=== PATIENT | female | born 1940 | race Caucasian/White ===

== ENCOUNTER 2020-07-01 11:38 | Inpatient (IN) | payer OTHER ==
[2020-07-01 12:07] LABS: Absolute Lymphocytes (CBC) 0.8 K/uL (0.7-4.9); Basophils % 0.3 % (0-1.3); Hematocrit 41.6 % (36.0-45.0); Lymphocytes % 4.7 % (15.3-44.8); RBC Red Blood Cell Count 4.96 M/uL (3.86-4.86)
[2020-07-01] MEDS ORDERED: ONDANSETRON 4 MG/2 ML VIAL ONE (12:18)
[2020-07-01] MEDS ORDERED: NA CHLORIDE 0.9% 1,000 ML ONE (12:18)
[2020-07-01] MEDS ORDERED: ACETAMINOPHEN 650MG/RECT SUPP PR ONE (12:18)
[2020-07-01 12:28] LABS: Albumin 3.1 g/dL (3.4-5.0); Bilirubin Direct 0.2 mg/dL (0-0.2); Bilirubin Total 0.7 mg/dL (0.2-1.0); Potassium 3.8 mmol/L (3.5-5.1); Protein, Total 7.2 g/dL (6.4-8.2); Protime INR 1.17; Troponin (Emerg Dept Use Only) 0.03 ng/mL (0.0-0.045)
--- NOTE | 2020-07-01 12:47 | RAD REPORT ---
EXAM DESCRIPTION: RAD - Chest Single View - 07/01/2020 12:28 pm CLINICAL HISTORY: Cough;Fever TECHNIQUE: AP portable chest image was obtained 07/01/2020 12:28 pm . FINDINGS: Dense masslike consolidation is present in the lateral right mid lung field. In the acute clinical setting this is most likely medial acquired pneumonia. Malignancy cannot be excluded if ther e are no findings that would support acute pneumonia. No cavitation component seen. Elsewhere the low lung volume exam shows no acute lung parenchymal process. Cardiomediastinal silhouette within normal limits. No measurable pleural effusion and no pneumothorax. No acute bony abnormality seen. No acute aortic findings suspected. IMPRESSION: Dense masslike consolidation right mid lung field most likely acute pneumonia. Correlation is needed with clinical findings for acute infectious pneumonia. Continued follow-up is n eeded to assure complete clearing.
[2020-07-01 12:53] LABS: Urine Blood 1+ (Negative); Urine Glucose Negative (Negative); Urine Protein 1+ (Negative); Urine Specific Gravity 1.025 (1.005-1.030)
--- NOTE | 2020-07-01 12:54 | RAD REPORT ---
EXAM DESCRIPTION: CT - Thorax Wo Con - 07/01/2020 12:39 pm CLINICAL HISTORY: cough COMPARISON: No comparisons TECHNIQUE: Axial 5 mm thick images of the chest were obtained without IV contrast. All CT scans are performed using dose optimization technique as appropriate and may include automated exposure control or mA/KV adjustment according to patient size. FINDINGS: A large 12 centimeter area of airspace opacification is present in the inferior right uppe r lobe abutting the minor fissure. Within this opacification is a more dense 5 centimeter area. There is no cavitation. Air bronchograms are present. Airspace opacification with air bronchogram formatio n seen right middle lobe infrahilar region. Right lower lobe is clear. A few very small patchy areas of airspace opacification seen in the superior segment left lower lobe and in the left upper lobe. Tr ksenia right-sided pleural effusion. No pneumothorax peer no pleural based mass. A few nonspecific mediastinal and hilar lymph nodes are present. Granulomatous type calcifications ar e present. Aortic calcifications present without aneurysm. No gross abnormal aorta or pulmonary arter ial tree. CT chest study was performed after the CT study of the abdomen and pelvis. This results in diluted contrast within the vascular spaces. No large pulmonary emboli seen. No cardiomegaly or pericardial effusion. No chest wall mass or abnormal axillary lymphadenopathy. IMPRESSION: Large dense consolidation in the inferior aspect right upper lobe abutting the minor fis sure. No cavitation component. Small area of airspace opacification perihilar right middle lobe. Most likely etiology is bacterial pneumonia. Due to a more dense masslike component centrally, contin ued follow-up imaging after medical management is needed to assure that this is not a mass with a pos tobstructive pneumonia..
--- NOTE | 2020-07-01 12:56 | RAD REPORT ---
EXAM DESCRIPTION: CT - Head Brain Wo Cont - 07/01/2020 12:27 pm CLINICAL HISTORY: CONFUSED, unresponsive COMPARISON: No comparisons TECHNIQUE: Axial 5 mm thick images of the head were obtained without IV contrast. All CT scans are performed using dose optimization technique as appropriate and may include automated exposure control or mA/KV adjustment according to patient size. FINDINGS: No intracranial hemorrhage, mass, edema or shift of mid-line structures. No acute infarcti on changes seen. No abnormal extra-axial fluid collections. Mild to moderate atrophy changes are pres ent with ventricles in proportion. No cortical edema or sulcal effacement. Moderate chronic ischemic change present in the cerebral white matter with extension into each basal ganglia and thalamus. Brai nstem chronic ischemic changes probably present as well. . Mastoid air cells and visualized portions of the paranasal sinuses are clear. No acute bony findings. IMPRESSION: No hemorrhage present. No acute cortical based infarction. Atrophy and chronic ischemic changes are present as detailed. Chronic ischemic change can mask nonhe morrhagic CVA.
[2020-07-01 13:02] LABS: Urine Bacteria <20 /HPF (<20); Urine Yeast PRESENT (NONE SEEN)
--- NOTE | 2020-07-01 13:04 | RAD REPORT ---
EXAM DESCRIPTION: CT - Abdomen Pelvis W Contrast - 07/01/2020 12:38 pm CLINICAL HISTORY: fever, vomiting, AMS COMPARISON: No comparisons TECHNIQUE: Biphasic, helical CT imaging of the abdomen and pelvis was performed following 100 ml non -ionic IV contrast. No oral contrast administered. All CT scans are performed using dose optimization technique as appropriate and may include automated exposure control or mA/KV adjustment according to patient size. FINDINGS: Consolidated parenchyma is present in the right upper lobe abutting the minor fissure and in the right perihilar right middle lobe region. Trace atelectasis in each posterior gutter. Chest fi ndings are further detailed in the CT chest report. Liver is borderline fatty infiltrated. No focal liver parenchymal lesion. Liver size is normal. No po rtal vein abnormality seen. No splenomegaly or focal splenic finding. Small accessory splenic nodule is present. No mass of the pancreatic parenchyma seen. No peripancreatic inflammatory stranding. Cholecystectomy clips are present. There are prominent biliary tree dilatation changes present with t he common bile duct is largest 2 cm in diameter. Pancreatic duct is enlarged in the head and body. At rophy changes are seen in the pancreatic parenchyma. Duct stones can be occult. A small mass or stric ture near the ampulla would be possible as well. Findings may all reflect a nonacute dilatation that can occur after a cholecystectomy. Symmetric renal function is seen with no hydronephrosis or suspicious renal mass. Small bilateral fe al masses are present showing simple cyst characteristics. Largest is an exophytic mass lateral mid l eft kidney. Pyelonephritis is not suspected. There is a subtle heterogeneity that is due to artifact from the patient's arms. No adrenal abnormalities. Urinary bladder is fully contracted around a Mosqueda catheter. No dilated bowel loops or bowel wall thickening. Small hiatal hernia is present. No evidence for appe ndicitis. No acute large or small bowel finding seen. Cecum is low lying along the right-side floor t he pelvis. Uterus is absent. Ovaries are absent or atrophic. No free air, free fluid or inflammatory stranding. No hernia, mass or bulky lymphadenopathy. No suspicious bony findings. IMPRESSION: Significant intrahepatic and extrahepatic biliary tree dilatation including dilatation o f the medial pancreatic duct. Findings may simply reflect the dilatation that can develop after a cholecystectomy. Duct stones can be occult. A small stricture or mass at the ampulla cannot be excluded. Correlation is needed with an y biliary obstructive clinical or laboratory findings. No acute GI, or [employer] TR[employer]IST finding. Right lung consolidated pneumonia findings are present only partially imaged. Please see separate CT chest report.
[2020-07-01] MEDS ORDERED: PIPER/TAZO/NS 3.375gm 3.375 GM/100 ML BAG ONE (13:11)
[2020-07-01 13:14] LABS: SARS-COV-2 RT PCR NEGATIVE (NEGATIVE)
[2020-07-01 13:15] LABS: Blood Morphology Comment NOT SEEN (NOT SEEN); Platelet Estimate ADEQ; White Blood Cell Scan OK (OK)
--- NOTE | 2020-07-01 13:52 | ER ---
Nurse's Notes [facility] Name: Lucie Dave Age: 79 yrs Sex: Female : 1940 Arrival Date: 07/01/2020 Time: 11:43 Bed 26 Private MD: Diagnosis: Pneumonia, unspecified organism;Altered mental status, unspecified Presentation: 07/01 11:38 Initial Sepsis Screen: Does the patient meet any 2 criteria? RR > 20 per min. Temp sv <36.0*C (96.8*F)) or > 38.3*C (100.9*F). HR > 90 bpm. Yes Does the patient have a suspected source of infection? Yes: Other: fever. Onset of symptoms was July 01, 2020. 11:38 Acuity: JUSTIN 2 sv 11:38 Chief complaint: Patient's son or daughter states: "She is here visiting and I figured ss she was just tired from shopping because she slept in longer than she ever has. When I went to check on her she wouldn't wake up and she had a fever." EMS reports vomiting episode x 1. Coronavirus screen: fever, Client presents with at least one sign or symptom that may indicate coronavirus-19. Standard/surgical mask placed on the client. Provider contacted for isolation considerations. Ebola Screen: Patient denies exposure to infectious person. Patient denies travel to an Ebola-affected area in the 21 days before illness onset. Risk Assessment: Do you want to hurt yourself or someone else? Patient reports no desire to harm self or others. 11:38 Method Of Arrival: EMS: [facility] ss Historical: - Allergies: 12:18 No Known Allergies; ss - PMHx: 12:18 COPD; CVA; Myocardial infarction; ss - Immunization history:: Adult Immunizations unknown. - Social history:: Smoking status: Patient/guardian denies using tobacco, the patient reports quitting approximately 20 years ago. - Family history:: not pertinent. - Hospitalizations: : No recent hospitalization is reported. Screenin:09 Abuse screen: Denies threats or abuse. Denies injuries from another. Nutritional ss screening: No deficits noted. Tuberculosis screening: Never had TB. Fall Risk None identified. Assessment: 11:45 General: Appears distressed, uncomfortable, ill, Behavior is confused, lethargic. . ss daughter reports fever that she noticed when she tried to wake her up this morning. Also states that patient would "barely wake up". Pain: Unable to use pain scale. Patient is disoriented. Neuro: Level of Consciousness is awake, obeys commands, confused, lethargic, Oriented to person, place, time. Cardiovascular: Capillary refill is sluggish in bilateral fingers Patient's skin is warm and dry. Pulses are palpable in right radial artery and left radial artery. Respiratory: Breath sounds with crackles bilaterally. Breath sounds with wheezes bilaterally. GI: Abdomen is non-distended, Abd is soft and non tender X 4 quads. EMS reports vomiting episode x 1. Dry vomit noted to L side of face/ mouth. :. EENT: Nares are clear Oral mucosa is dry. Derm: Skin is intact, is healthy with good turgor, Skin is dry, Skin is pink, warm \\T\\ dry. normal. Derm: hard, wrinkly, lumpy skin noted to bilateral lower extremities. No redness noted. PT has lesions on R posterior back/ shoulder blade that she is currently receiving treatment for. 12:20 Reassessment: DAughter at bedside. Patient's clothes placed in bag and given to ss daughter. Daughter gave them to her to bring home. Awaiting labs and imaging to result at this time. Call light remains within reach. 13:12 Reassessment: Patient appears in no apparent distress at this time. Patient and/or sv family updated on plan of care and expected duration. Pain level reassessed. 14:11 Reassessment: Pt is resting at this time. Eyes closed. Respirations remain even and ss unlabored. Awaiting for hospitalist to place admission orders. Pt wakes up easily to verbal stimuli and is oriented x3. Vital Signs: 11:37 Pulse Ox 96% on R/A; sv 11:38 BP 136 / 79; Pulse 114; Resp 30; Temp 103(C); Pulse Ox 100% on 2 lpm NC; sv 12:56 BP 144 / 73; Pulse 102; Resp 22; Temp 102.6(C); Pulse Ox 100% on 2 lpm NC; sv 14:03 BP 136 / 75; Pulse 100; Resp 20; Temp 101.5(C); Pain 0/10; ss 14:41 BP 136 / 83; Pulse 96; Resp 19; Temp 101.2(C); Pulse Ox 100% ; sv ED Course: 11:43 Patient arrived in ED. sv 11:43 First set of blood cultures drawn by ED staff. sv 11:44 Tyler Castellano MD is Attending Physician. rn 11:55 Mosqueda cath inserted, using sterile technique, 16 Fr., by nj, balloon inflated, to sv gravity drainage, returned clear yellow urine. Patient tolerated poorly. 11:55 Second set of blood cultures drawn by ED staff. Inserted saline lock: 20 gauge in right sv antecubital area, using aseptic technique. ,using aseptic technique. done by Mary Jane SALGADO Blood collected. Flushed right antecubital with 2 ml normal saline. 11:55 Patient has correct armband on for positive identification. Placed in gown. Bed in low sv position. Call light in reach. Side rails up X 1. Adult w/ patient. library monitor on. Pulse ox on. NIBP on. Door closed. Head of bed elevated. 12:02 Basic Metabolic Panel Sent. sv 12:02 CBC with Diff Sent. sv 12:02 Lactate Sent. sv 12:02 LFT's Sent. sv 12:02 Lipase Sent. sv 12:04 Triage completed. sv 12:04 Arm band placed on. sv 12:11 Aracely Avelar RN is Primary Nurse. sv 12:20 Blood Culture Adult (2) Sent. sv 12:27 CT Head Brain wo Cont In Process Unspecified. EDMS 12:28 Chest Single View XRAY In Process Unspecified. EDMS 12:38 CT Abd/Pelvis - IV Contrast Only In Process Unspecified. EDMS 12:39 CT Chest Wo Con In Process Unspecified. EDMS 13:04 Urine Culture Sent. sv 13:11 EKG done, by ED staff, reviewed by Tyler Castellano MD. sv 13:52 Mohit Valenzuela MD is Hospitalizing Provider. rn 14:10 No provider procedures requiring assistance completed. Patient admitted, IV remains in ss place. 16:02 Report given to Aminta SALGADO. sv Administered Medications: 12:11 Drug: Zofran (Ondansetron) 4 mg Route: IVP; Site: right antecubital; sv 14:12 Follow up: Response: No adverse reaction; Nausea is decreased ss 12:12 Drug: Tylenol Suppository 650 mg Route: MN; sv 14:12 Follow up: Response: No adverse reaction; Temperature is decreased ss 12:12 Drug: NS 0.9% 1000 ml Route: IV; Rate: 1000 ml; Site: right antecubital; sv 12:56 Drug: Zosyn 3.375 grams Route: IVPB; Infused Over: 60 mins; Site: right antecubital; ss 14:03 Follow up: IV Status: Completed infusion ss Outcome: 13:52 Decision to Hospitalize by Provider. rn 14:09 Condition: improved ss 14:09 Instructed on the need for admit. 18:21 Patient left the ED. hb Signatures: Dispatcher [employer] Aracely Mccann RN RN sv Tyler Castellano MD MD rn Smirch, Shelby, RN RN Morenita Ryan RN RN hb
--- NOTE | 2020-07-01 13:52 | EDPHYS ---
Physician Documentation [facility] Name: Lucie Dave Age: 79 yrs Sex: Female : 1940 Arrival Date: 07/01/2020 Time: 11:43 Bed 26 Private MD: ED Physician Tyler Castellano HPI: 07/01 13:24 This 79 yrs old Female presents to ER via EMS with complaints of Fever, rn Altered Mental Status. 13:24 The patient reports fever, that was measured at 102 degrees Fahrenheit. Onset: The rn symptoms/episode began/occurred this morning. Modifying factors: there are no obvious modifying factors. Associated signs and symptoms: Pertinent negatives: abdominal pain, altered mental status, chest pain, hemoptysis, skin rash. Severity of symptoms: At their worst the symptoms were moderate in the emergency department the symptoms have improved. 13:25 The patient has not experienced similar symptoms in the past. The patient has not rn recently seen a physician. 13:44 Reports fever and difficult to arouse this AM, was ok yesterday shopping. Pt denies rn focal pain. EMS reported single episode of emesis. + sob. . Historical: - Allergies: 12:18 No Known Allergies; ss - PMHx: 12:18 COPD; CVA; Myocardial infarction; ss - Immunization history:: Adult Immunizations unknown. - Social history:: Smoking status: Patient/guardian denies using tobacco, the patient reports quitting approximately 20 years ago. - Family history:: not pertinent. - Hospitalizations: : No recent hospitalization is reported. ROS: 13:44 Constitutional: + fever Eyes: Negative for injury, pain, redness, and discharge, Neck: rn Negative for injury, pain, and swelling, Cardiovascular: Negative for chest pain, palpitations, and edema, Respiratory: Negative for wheezing, and pleuritic chest pain, Abdomen/GI: Negative for abdominal pain, diarrhea, and constipation, Back: Negative for injury and pain, : Negative for injury, bleeding, discharge, and swelling, MS/Extremity: Negative for injury and deformity, Skin: Negative for injury, rash, and discoloration, Neuro: Negative for headache, numbness, tingling, and seizure. Exam: 13:44 Constitutional: This is a well developed, well nourished patient who is awake, rn somnolent, awwakens to voice and answers questions. Head/Face: Normocephalic, atraumatic. Eyes: Pupils equal round and reactive to light, extra-ocular motions intact. Lids and lashes normal. Conjunctiva and sclera are non-icteric and not injected. Cornea within normal limits. Periorbital areas with no swelling, redness, or edema. ENT: dry MM, no stridor Cardiovascular: Tachycardic, regular Respiratory: + mild tachypnea, no retractions Abdomen/GI: soft, non-tender Skin: Warm, dry MS/ Extremity: Pulses equal, no cyanosis. Neuro: Awake, GCS 15, oriented to person, place, time, and situation. Motor strength 4/5 in all extremities. Sensory grossly intact. Vital Signs: 11:37 Pulse Ox 96% on R/A; sv 11:38 BP 136 / 79; Pulse 114; Resp 30; Temp 103(C); Pulse Ox 100% on 2 lpm NC; sv 12:56 BP 144 / 73; Pulse 102; Resp 22; Temp 102.6(C); Pulse Ox 100% on 2 lpm NC; sv 14:03 BP 136 / 75; Pulse 100; Resp 20; Temp 101.5(C); Pain 0/10; ss 14:41 BP 136 / 83; Pulse 96; Resp 19; Temp 101.2(C); Pulse Ox 100% ; sv MDM: 11:44 Patient medically screened. rn 13:48 Differential diagnosis: viral Infection, bacterial infection, URI, bronchitis, rn pneumonia UTI, gastroenteritis. Data reviewed: vital signs, nurses notes, lab test result(s), EKG, radiologic studies, CT scan, plain films, and as a result, I will admit patient. Counseling: I had a detailed discussion with the patient and/or guardian regarding: the historical points, exam findings, and any diagnostic results supporting the discharge/admit diagnosis, lab results, radiology results, the need for further work-up and treatment in the hospital. Response to treatment: the patient's symptoms have mildly improved after treatment, and as a result, I will admit patient. Admission orders: after a detailed discussion of the patient's condition and case, the admit orders are written by me. ED course: Pt much more alert, ct shows moderate right middle lobe pneumonia, also shows biliary prominence but has had gallbladder removed, normal lfts, and non-tender abdomen so likely sequelae of cholecystectomy and age. Admitted to Dr. Valenzuela.. 07/01 11:45 Order name: Urine Culture rn 07/01 11:45 Order name: Basic Metabolic Panel rn 07/01 11:45 Order name: Blood Culture Adult (2) rn 07/01 11:45 Order name: CBC with Diff rn 07/01 11:45 Order name: Lactate rn 07/01 11:45 Order name: LFT's rn 07/01 11:45 Order name: Lipase rn 07/01 11:45 Order name: Procalcitonin; Complete Time: 13:10 rn 07/01 11:45 Order name: Protime (+inr); Complete Time: 12:51 rn 07/01 11:45 Order name: Ptt, Activated; Complete Time: 12:51 07/01 11:45 Order name: Troponin (emerg Dept Use Only); Complete Time: 12:51 07/01 11:45 Order name: Urine Microscopic Only; Complete Time: 13:06 07/01 11:46 Order name: Urine Culture EDOK 07/01 11:46 Order name: Basic Metabolic Panel; Complete Time: 12:51 EDOK 07/01 11:46 Order name: Blood Culture EDOK 07/01 11:46 Order name: CBC with Automated Diff EDOK 07/01 11:46 Order name: Lactate; Complete Time: 12:51 EDOK 07/01 11:46 Order name: Liver (Hepatic) Function; Complete Time: 12:51 EDOK 07/01 11:46 Order name: Lipase; Complete Time: 12:51 EDOK 07/01 12:53 Order name: Urine Dipstick-Ancillary; Complete Time: 13:06 EDMS 07/01 13:14 Order name: COVID-19/FLU A+B EDOK 07/01 13:15 Order name: CBC Smear Scan EDOK 07/01 14:07 Order name: CBC with Automated Diff EDMS 07/01 14:07 Order name: CBC with Automated Diff EDMS 07/01 14:07 Order name: Lactate EDMS 07/01 14:07 Order name: Lactate EDMS 07/01 14:07 Order name: Lipid Profile EDOK 07/01 14:07 Order name: Lipid Profile EDOK 07/01 11:45 Order name: Chest Single View XRAY; Complete Time: 13:06 rn 07/01 11:45 Order name: Accucheck; Complete Time: 12:58 rn 07/01 11:45 Order name: Cardiac monitoring; Complete Time: 12:02 rn 07/01 11:45 Order name: EKG - Nurse/Tech; Complete Time: 13:11 rn 07/01 11:45 Order name: IV Saline Lock - Large Bore; Complete Time: 12:02 rn 07/01 11:45 Order name: Labs collected and sent; Complete Time: 12:02 rn 07/01 11:45 Order name: O2 Per Protocol; Complete Time: 12:02 rn 07/01 11:45 Order name: O2 Sat Monitoring; Complete Time: 12:02 rn 07/01 11:45 Order name: Urine Dipstick-Ancillary (obtain specimen); Complete Time: 13:05 rn 07/01 11:47 Order name: CT Head Brain wo Cont; Complete Time: 13:06 rn 07/01 11:47 Order name: CT Abd/Pelvis - IV Contrast Only; Complete Time: 13:06 rn 07/01 12:35 Order name: CT Chest Wo Con; Complete Time: 13:06 rn 07/01 14:07 Order name: CONS Physician Consult [facility] 07/01 14:07 Order name: Heart Healthy [facility] 07/01 14:07 Order name: Magnesium [facility] 07/01 14:07 Order name: Magnesium [facility] 07/01 14:07 Order name: NT PRO-BNP [facility] 07/01 14:07 Order name: NT PRO-BNP [facility] 07/01 14:07 Order name: Phosphorus [facility] 07/01 14:07 Order name: Phosphorus [facility] 07/01 14:07 Order name: Procalcitonin [facility] 07/01 14:07 Order name: Procalcitonin [facility] Administered Medications: 12:11 Drug: Zofran (Ondansetron) 4 mg Route: IVP; Site: right antecubital; sv 14:12 Follow up: Response: No adverse reaction; Nausea is decreased ss 12:12 Drug: Tylenol Suppository 650 mg Route: HI; sv 14:12 Follow up: Response: No adverse reaction; Temperature is decreased ss 12:12 Drug: NS 0.9% 1000 ml Route: IV; Rate: 1000 ml; Site: right antecubital; sv 12:56 Drug: Zosyn 3.375 grams Route: IVPB; Infused Over: 60 mins; Site: right antecubital; ss 14:03 Follow up: IV Status: Completed infusion ss Disposition: 07/01/20 13:52 Hospitalization ordered by Mohit Valenzuela for Inpatient Admission. Preliminary diagnosis are Pneumonia, unspecified organism, Altered mental status, unspecified. - Bed requested for Telemetry/MedSurg (Inpatient). - Status is Inpatient Admission. hb - Condition is Stable. - Problem is new. - Symptoms have improved. Signatures: Dispatcher [employer] EDMS Aracely Avelar RN RN sv Erin Cummings RN RN dw Tyler Castellano MD MD rn Smirch, Shelby, RN RN Morenita Ryan RN RN Corrections: (The following items were deleted from the chart) 12: 11:47 Influenza Screen (A \T\ B)+BA.LAB.BRZ ordered. EDMS EDMS 12: 11:47 CORONAVIRUS+MR.LAB.BRZ ordered. EDOK EDMS 16:42 13:52 Hospitalization Ordered by Mohit Valenzuela MD for Inpatient Admission. Preliminary dw diagnosis is Pneumonia, unspecified organism; Altered mental status, unspecified. Bed requested for Telemetry/MedSurg (Inpatient). Status is Inpatient Admission. Condition is Stable. Problem is new. Symptoms have improved. rn 18:21 16:42 07/01/2020 13:52 Hospitalization Ordered by Mohit Valenzuela MD for Inpatient hb Admission. Preliminary diagnosis is Pneumonia, unspecified organism; Altered mental status, unspecified. Bed requested for Telemetry/MedSurg (Inpatient). Status is Inpatient Admission. Condition is Stable. Problem is new. Symptoms have improved. dw
[2020-07-01] MEDS: IPRATROPIUM BROM 0.5MG/2.5ML NEB SCH ×2 (14:00→19:35)
[2020-07-01] MEDS ORDERED: ACETAMINOPHEN 500 MG TAB PO PRN (14:00)
[2020-07-01] MEDS: ONDANSETRON 4 MG/2 ML VIAL IV SCH ×3 (14:00→22:43)
[2020-07-01] MEDS: ALBUTEROL 2.5 MG/3 ML NEB SOL NEB SCH ×2 (14:00→19:35)
[2020-07-01 18:24] VITALS: BMI 33.7
[2020-07-01] MEDS: CEFTRIAXONE/SWI 1gm 1 GM/10 ML SYR IVP SCH (20:52)
[2020-07-02] MEDS: ALBUTEROL 2.5 MG/3 ML NEB SOL NEB SCH ×2 (01:25→08:00)
[2020-07-02] MEDS: IPRATROPIUM BROM 0.5MG/2.5ML NEB SCH ×3 (01:25→13:11)
[2020-07-02] MEDS: ONDANSETRON 4 MG/2 ML VIAL IV SCH ×4 (02:30→13:16)
[2020-07-02 06:11] LABS: Absolute Lymphocytes (CBC) 1.3 K/uL (0.7-4.9); Basophils % 0.3 % (0-1.3); Hematocrit 32.5 % (36.0-45.0); Lymphocytes % 8.9 % (15.3-44.8); MPV 9.1 fL (7.6-11.3); RBC Red Blood Cell Count 3.93 M/uL (3.86-4.86)
[2020-07-02 06:23] LABS: Magnesium 2.1 mg/dL (1.8-2.4); Phosphorus 3.2 mg/dL (2.5-4.9)
[2020-07-02 06:33] LABS: Potassium 3.3 mmol/L (3.5-5.1)
[2020-07-02] MEDS ORDERED: ENOXAPARIN 40 MG/0.4 ML SQ SCH (09:00)
[2020-07-02] MEDS ORDERED: POTASSIUM CL SA 10 MEQ TAB PO ONE (09:00)
[2020-07-02] MEDS ORDERED: AZITHROMYCIN IV 500 MG in NA CHLORIDE 0.9% 250 ML IVPB SCH (09:00)
[2020-07-02] MEDS: CEFTRIAXONE/SWI 1gm 1 GM/10 ML SYR IVP SCH (09:11)
--- NOTE | 2020-07-02 09:43 | P.CNS ---
Date of Consult: 07/02/20 Reason for Consult: Right upper lobe pneumonia History of Present Illness: Patient is 79 years of age presented to the emergency room with fever altered mental status this came on rather suddenly Patient was here visiting felt tired patient was admitted with a right upper lobe pneumonia. Patient lives in [facility] and is not feeling well the rate to go home has mild diarrhea Allergies No Known Allergies Allergy (Verified 07/01/20 14:14) Home Medications: Clopidogrel Bisulfate [Plavix*] 1 tab PO DAILY 07/01/20 Irbesartan/Hydrochlorothiazide [Avalide 150-12.5 mg Tablet] 1 tab PO DAILY 07/01/20 Pantoprazole [Protonix Tab*] 1 tab PO DAILY 07/01/20 - Past Medical/Surgical History Diabetic: No -: heart attack -: stroke -: uterine Ca -: back surgery - Social History Alcohol use: No CD- Drugs: No Caffeine use: Yes Place of Residence: Home Review of Systems 10-point ROS is otherwise unremarkable General: Weakness Physical Examination Temp Pulse Resp BP Pulse Ox 98.9 F 74 18 108/51 L 97 07/02/20 08:00 07/02/20 08:00 07/02/20 08:00 07/02/20 08:00 07/02/20 08:00 General: Alert, Oriented x3 Respiratory: Clear to auscultation bilaterally, Diminished Cardiovascular: No edema, Normal S1 S2 Laboratory Data (last 24 hrs) 07/01/20 11:55: PT 13.5 H, INR 1.17, APTT 28.3 07/01/20 11:55: WBC 17.10 H, Hgb 13.5, Hct 41.6, Plt Count 210 07/01/20 11:55: Sodium 138, Potassium 3.8, BUN 19 H, Creatinine 1.11, Glucose 131 H, Total Bilirubin 0.7, AST 40 H, ALT 57, Alkaline Phosphatase 74, Lipase 84 - Problems (1) Pneumonia Current Visit: Yes Status: Acute Plan: Patient is 79 years of age admitted with a right upper lobe pneumonia most likely pneumococcal he is doing much better patient is hypokalemic recommend reducing dose of Lasix her using a given p.r.n. patient also has a thiazide diuretic change director to levofloxacin 500 mg daily discharge for with me in 2 weeks
[2020-07-02] MEDS ORDERED: ALBUTEROL 2.5 MG/3 ML NEB SOL NEB PRN (10:28)
[2020-07-02] MEDS ORDERED: POTASSIUM 25 MEQ EFFERV TAB PO SCH (10:28)
[2020-07-02 12:20] VITALS: BP 126/61; TEMP 98.8
[2020-07-02 17:21] VITALS: O2SAT 95
--- NOTE | 2020-07-03 07:18 | EKG ---
Test Date: 2020-07-01 Test Time: 13:05:56 [employer]per: WINTER MEASUREMENT RESULTS: Intervals: Rate: 106 IN: 176 QRSD: 92 QT: 352 QTc: 467 Murray: P: 62 IN: 176 QRS: 6 T: 82 INTERPRETIVE STATEMENTS: Sinus tachycardia Nonspecific T wave abnormality Abnormal ECG No previous ECG available for comparison Electronically Signed On 07-03-20 07:14:34 CDT by Miguelito Gonzalez
--- NOTE | 2020-07-05 19:47 | P.HP ---
Certification for Inpatient Patient admitted to: Inpatient With expected LOS: >2 Midnights Patient will require the following post-hospital care: None Practitioner: I am a practitioner with admitting privileges, knowledge of patient current condition, hospital course, and medical plan of care. Services: Services provided to patient in accordance with Admission requirements found in Title 42 Section 412.3 of the Code of Federal Regulations Patient History Date of Service: 07/01/20 Reason for admission: Right lower lobe pneumonia History of Present Illness: Patient is an 79-year-old female who came into the hospital with shortness of breath. Patient's chest x-ray revealed a dense consolidation in the right upper lobe. She was started on IV antibiotic therapy. Patient given nebs, steroids, and antibiotics. Patient will be admitted to the hospital for further evaluation. Patient has been sick for the last couple of days. Her clinical symptoms have not been really improving. She will be admitted for right lower lobe pneumonia. Allergies No Known Allergies Allergy (Verified 07/01/20 14:14) Home Medications: Clopidogrel Bisulfate [Plavix*] 1 tab PO DAILY 07/01/20 Irbesartan/Hydrochlorothiazide [Avalide 150-12.5 mg Tablet] 1 tab PO DAILY 07/01/20 Pantoprazole [Protonix Tab*] 1 tab PO DAILY 07/01/20 Albuterol Neb [Proventil 0.083% Neb Soln] 2.5 mg NEB [id number] PRN #60 amp 07/02/20 Azithromycin Tab [Zithromax*] 250 mg PO DAILY #5 tab 07/02/20 Cefdinir [Omnicef] 300 mg PO Q12H #14 capsule 07/02/20 Ipratropium Neb [Atrovent*] 0.5 mg NEB [id number] #60 amp 07/02/20 - Past Medical/Surgical History Has patient received pneumonia vaccine in the past: Yes Diabetic: No -: heart attack -: stroke -: uterine Ca -: back surgery - Family History Father Family History: Reviewed- Non-Contributory - Social History Smoking Status: Former smoker Alcohol use: No CD- Drugs: No Caffeine use: Yes Place of Residence: Home Review of Systems 10-point ROS is otherwise unremarkable Physical Examination - Vital Signs Temperature: 98.8 F Blood Pressure: 126/61 Pulse: 79 Respirations: 20 Pulse Ox (%): 95 - Physical Exam General: Alert, In no apparent distress, Oriented x3 HEENT: Atraumatic, PERRLA, Mucous membr. moist/pink, EOMI, Sclerae nonicteric Neck: Supple, 2+ carotid pulse no bruit, No LAD, Without JVD or thyroid abnormality Respiratory: Diminished, Rhonchi/gurgles Cardiovascular: Regular rate/rhythm, Normal S1 S2, No murmurs Gastrointestinal: Normal bowel sounds, Soft and benign, Non-distended, No tenderness, No rebound, No guarding Musculoskeletal: No clubbing, No swelling, No tenderness Integumentary: No rashes Neurological: Normal gait, Normal speech, Normal strength at 5/5 x4 extr, Normal tone, Sensation intact, Cranial nerves 3-12 intact Lymphatics: No axilla or inguinal lymphadenopathy Assessment & Plan - Problems (Diagnosis) (1) Right lower lobe pneumonia Status: Acute - Plan Plan: - Continue with IV antibiotics - Awaiting sputum and blood culture - Repeat chest x-ray - Will proceed with CT scan of the chest if pneumonia is not improved to evaluate for post-obstructive pneumonia - Respiratory isolation is not needed - Continue with nebs as needed - O2 per protocol - Continue with gentle hydration - Repeat labs including CBC and renal function in a.m. - GI and DVT prophylaxis Discharge Plan: Home Plan to discharge in: 48 Hours - Advance Directives Does patient have a Living Will: No Does patient have a Durable POA for Healthcare: No - Code Status/Comfort Care Code Status Assessed: Yes Code Status: Full Code Critical Care: No Time Spent Managing PTS Care (In Minutes): 45
--- NOTE | 2020-07-05 19:49 | P.DS ---
Discharge Date: 07/02/20 Disposition: ROUTINE DISCHARGE Discharge Condition: GOOD Reason for Admission: Right lower lobe pneumonia - Problems (1) Right lower lobe pneumonia Status: Acute Brief History of Present Illness: Patient is an 79-year-old female who came into the hospital with shortness of breath. Patient's chest x-ray revealed a dense consolidation in the right upper lobe. She was started on IV antibiotic therapy. Patient given nebs, steroids, and antibiotics. Patient will be admitted to the hospital for further evaluation. Patient has been sick for the last couple of days. Her clinical sy mptoms have not been really improving. She will be admitted for right lower lobe pneumonia. Hospital Course: Patient had done well during hospital stay. Pneumonia is significantly improved. Continue with oral antibiotic therapy. Patient will need continued observation follow up. At this time, patient is stable for discharge home. Vital Signs/Physical Exam: Temp Pulse Resp BP Pulse Ox 98.8 F 79 20 126/61 95 07/05/20 19:47 07/05/20 19:47 07/05/20 19:47 07/05/20 19:47 07/05/20 19:47 General: Alert, In no apparent distress, Oriented x3 Laboratory Data at Discharge: WBC 14.90 K/uL (4.3-10.9) H 07/02/20 05:49 Hgb 10.5 g/dL (12.0-15.0) L D 07/02/20 05:49 Hct 32.5 % (36.0-45.0) L D 07/02/20 05:49 Plt Count 176 K/uL (152-406) 07/02/20 05:49 PT 13.5 SECONDS (9.5-12.5) H 07/01/20 11:55 INR 1.17 07/01/20 11:55 APTT 28.3 SECONDS (24.3-36.9) 07/01/20 11:55 Sodium 138 mmol/L (136-145) 07/01/20 11:55 Potassium 3.7 mmol/L (3.5-5.1) 07/02/20 15:06 BUN 19 mg/dL (7-18) H 07/01/20 11:55 Creatinine 1.11 mg/dL (0.55-1.3) 07/01/20 11:55 Glucose 131 mg/dL (74-106) H 07/01/20 11:55 Phosphorus 3.2 mg/dL (2.5-4.9) 07/02/20 05:49 Magnesium 2.1 mg/dL (1.8-2.4) 07/02/20 05:49 Total Bilirubin 0.7 mg/dL (0.2-1.0) 07/01/20 11:55 AST 40 U/L (15-37) H 07/01/20 11:55 ALT 57 U/L (12-78) 07/01/20 11:55 Alkaline Phosphatase 74 U/L (45-117) 07/01/20 11:55 Triglycerides 54 mg/dL (<150) 07/02/20 05:49 Cholesterol 127 mg/dL (<200) 07/02/20 05:49 HDL Cholesterol 53 mg/dL (40-60) 07/02/20 05:49 Cholesterol/HDL Ratio 2.40 07/02/20 05:49 Lipase 84 U/L (73-393) 07/01/20 11:55 Home Medications: Clopidogrel Bisulfate [Plavix*] 1 tab PO DAILY 07/01/20 Irbesartan/Hydrochlorothiazide [Avalide 150-12.5 mg Tablet] 1 tab PO DAILY 07/01/20 Pantoprazole [Protonix Tab*] 1 tab PO DAILY 07/01/20 Albuterol Neb [Proventil 0.083% Neb Soln] 2.5 mg NEB [id number] PRN #60 amp 07/02/20 Azithromycin Tab [Zithromax*] 250 mg PO DAILY #5 tab 07/02/20 Cefdinir [Omnicef] 300 mg PO Q12H #14 capsule 07/02/20 Ipratropium Neb [Atrovent*] 0.5 mg NEB [id number] #60 amp 07/02/20 New Medications: Ipratropium Neb [Atrovent*] 0.5 mg NEB [id number] #60 amp Cefdinir [Omnicef] 300 mg PO Q12H #14 capsule Albuterol Neb [Proventil 0.083% Neb Soln] 2.5 mg NEB [id number] PRN #60 amp PRN Reason: sob Azithromycin Tab [Zithromax*] 250 mg PO DAILY #5 tab Physician Discharge Instructions: OK TO DC IV AND DC HOME FOLLOW-UP WITH PCP IN 1-[address] HASSAN AT [phone] IF Any questions regarding hospital stay FOLLOW-UP WITH CARDIOLOGY FOR FURTHER CARDIAC TESTING RETURN TO THE ER IF SYMPTOMS WORSENS Use Lasix p.r.n. instead of his schedule dose Patient has low potassium Diet: AHA Activity: Fall precautions Followup: Miguelito Gonzalez MD [ACTIVE - CAN ADMIT] - OOT,OOT [Primary Care Provider] - Time spent managing pt's care (in minutes): 35
== END 2020-07-02 16:06 | disposition home or self-care (01) | DRG 194 ==
LOC: ER 11:38 → ERHOLD 14:13 → 2ND 18:08
PROVIDERS: ADMIT Hospitalist; ATTEND Hospitalist
DX: J18.9 Pneumonia, unspecified organism (principal); J44.0 Chronic obstructive pulmonary disease with (acute) lower respiratory infection; E87.6 Hypokalemia; I25.2 Old myocardial infarction; Z86.73 Personal history of transient ischemic attack (TIA), and cerebral infarction without residual deficits; Z87.891 Personal history of nicotine dependence; Z79.02 Long term (current) use of antithrombotics/antiplatelets; Z79.899 Other long term (current) drug therapy; Z20.822 Contact with and (suspected) exposure to COVID-19
CPT/HCPCS: 0240U; 36415; 51702; 70450; 71045; 71250; 74177; 80048; 80061; 80076; 81003; 81015; 82565; 83605; 83690; 83735; 83880; 84100; 84132; 84145; 84484; 85025; 85610; 85730; 87040; 87070; 87075; 87077; 87086; 87088; 87186; 87205; 93005; 94640; 94760; 96365; 96375; 99285; J0456; J0696; J1650; J2405; J2543; J7030; J7050; Q9967